=== PATIENT | female | born 1960 | race Caucasian/White ===

== ENCOUNTER 2025-10-26 15:09 | Outpatient (AMB) | payer OTHER, SELFPAY ==
[2025-10-26 15:24] VITALS: BMI 24.8
--- NOTE | 2025-10-26 15:24 | A.PHYSOV ---
Vital Signs 10/26/25 15:24 Height 5 ft 3 in Weight 140 lb BMI 24.8 Intake Visit Reasons: cervicogenic headaches Intake Note: Patient is a 65 year old female in office today for a follow up visit on cervicogenic headaches. Ink Grinder Required: No Allergies acetaminophen (From Percocet) Allergy (Unknown, Verified 10/26/25 15:24) Unknown adhesive tape Allergy (Unknown, Verified 10/26/25 15:24) Unknown amlodipine Allergy (Unknown, Verified 10/26/25 15:24) Unknown doxycycline Allergy (Unknown, Verified 10/26/25 15:24) Unknown Influenza Virus Vaccines Allergy (Unknown, Verified 10/26/25 15:24) Unknown oxycodone (From Percocet) Allergy (Unknown, Verified 10/26/25 15:24) Unknown prazosin Allergy (Unknown, Verified 10/26/25 15:24) Unknown prochlorperazine (From Compazine) Allergy (Unknown, Verified 10/26/25 15:24) Unknown propranolol Allergy (Unknown, Verified 10/26/25 15:24) Unknown sulfamethoxazole (From Bactrim) Allergy (Unknown, Verified 10/26/25 15:24) Unknown trimethoprim (From Bactrim) Allergy (Unknown, Verified 10/26/25 15:24) Unknown HPI Comments Details: History of Present Illness The patient is a 65 year old female presenting for follow-up of chronic left-sided neck pain. She reports that her left C2 and C3 levels began acting up significantly in May, which then improved, but symptoms have returned since the end of August or beginning of September. The primary complaint is severe headaches secondary to the neck pain. The patient describes the pain as being localized to the left side, and it tends to worsen by the end of the day. On some days, the pain requires her to lie down. She notes that sometimes a slight movement of her head will produce a loud crack, which provides temporary relief from the headache for about 20 minutes. Triggers include looking down at her phone. A past episode where her neck got stuck after lifting a pot caused her to vomit. Past interventions that have provided relief include joint injections and prednisone. She has been doing physical therapy exercises and has a cervical traction unit at home, but has not used it recently. She has not previously tried turmeric for her symptoms. Separately, the patient notes atrophy in her left hand, which she believes is related to Dupuytren's contracture. She reports associated numbness but denies any weakness. She has a history of trigger fingers, with one requiring two injections in the past year. Pain Description - Onset and Timing: A flare-up of chronic pain began in May, improved, and then worsened again since early September; pain is worse by the end of the day. - Quality and Character: Described as a pain that is severe enough to cause her to hold her head, can get stuck, and produces a loud cracking sound with certain movements. - Primary Location: Left C2 and C3. - Associated Symptoms: Causes severe headaches and has led to vomiting on one occasion. - Exacerbating Factors: Looking down at her phone; lifting objects. - Relieving Factors: Lying down; a specific neck movement resulting in a crack provides temporary relief of the headache; past treatments with injections and prednisone were helpful. - Interference with Function: The pain is significant enough that she is not living with too well anymore and sometimes has to lie down during the day. Results [facility] Medical History (Updated 10/26/25 @ 16:38 by Luis Bearden DO) Spondylosis of cervical region without myelopathy or radiculopathy Neck pain Cervicocranial syndrome Surgical History [place] teeth extracted History of jaw surgery History of salpingo-oophorectomy H/O: hysterectomy History of knee surgery H/O shoulder surgery History of cataract surgery Social History Household Members: Spouse Alcohol intake: current Alcohol intake frequency: a few times a week Patient Tobacco Use Status: Former Tobacco user Use of substances other than those prescribed or required for medical reasons: No Current occupational status: employed Review of Systems Narrative Review of Systems - Musculoskeletal: Reports chronic, flaring pain in the left cervical spine at the C2-3 level. - Neurological: Reports severe headaches associated with her neck pain. - Extremities: Reports atrophy and numbness in her left hand, which she relates to Dupuytren's contracture; denies weakness in the hand. - Gastrointestinal: Reports a single episode of vomiting when her neck became severely stuck. Physical Exam Exam Exam: Physical Exam - Neck: Pain is elicited on the left side with movement. - The right side is non-tender and has normal range of motion. - Extremities: Inspection of the left hand reveals atrophy and contractures consistent with Dupuytren's. Pain with posterior cervical facet loading. Neurological examination was. Patient signs. Spurling maneuver was negative. Sign was negative. Vital Signs: BMI result Body Mass Index 24.8 Assessment & Plan Assessment & Plan (1) Cervicocranial syndrome: Code(s): M53.0 - Cervicocranial syndrome Category: Medical (2) Neck pain: Code(s): M54.2 - Cervicalgia Category: Medical (3) Spondylosis of cervical region without myelopathy or radiculopathy: Code(s): M47.812 - Spondylosis without myelopathy or radiculopathy, cervical region Category: Medical Plan Pain Management - Analgesia: The patient reports that previous treatments with prednisone and joint injections have been effective. - Current Pain: Current pain is poorly controlled - Activities of Daily Living: Pain impacts her daily life to the point where she sometimes has to lie down. - Adverse Effects: She experienced one episode of vomiting when her neck became stuck. Plan Patient was informed and verbally consented to the use of an ambient scribe for clinic note documentation during this visit. 1. Cervicalgia And Cervicogenic Headache The patient's current flare of left-sided neck pain and associated headaches will be managed conservatively initially, given her past positive response to steroids. A prescription for an 18-day prednisone taper will be sent to her pharmacy. It was also recommended that she start taking turmeric 2000 mg daily with black pepper for its anti-inflammatory benefits. If the prednisone taper does not provide adequate relief, the plan is to proceed with left C2-C3 and C3-C4 facet injections. The patient was instructed to call the office to schedule the procedure if her symptoms do not improve. 2. Dupuytren's Contracture, Left Hand The patient reported concerns about progressive atrophy and numbness in her left hand, which she attributes to her known Dupuytren's contracture. She denies any associated motor weakness. These findings were acknowledged and noted for monitoring purposes. No new interventions were planned for this issue at this visit. Discussion Notes I discussed with the patient that given her current flare of neck pain and headaches, and her history of a positive response to steroids, we would start with a course of oral prednisone. I advised that I would send an 18-day taper prescription to her pharmacy. I also recommended she begin taking turmeric 2000 mg daily with black pepper as an anti-inflammatory supplement. We agreed that if this treatment does not resolve her symptoms, she should contact the office to schedule left C2-3 and C3-4 facet injections as the next step in her treatment plan. We also acknowledged her concerns regarding the atrophy in her left hand secondary to Dupuytren's contracture, which will be monitored. Patient Instructions - Begin taking the prednisone taper as prescribed. - Start taking turmeric 2000 mg per day. - You should purchase a brand that includes black pepper, as this helps with absorption. - If the prednisone does not relieve your neck pain and headaches, please call our office. - The next step, if needed, will be to schedule injections for your neck (left C2-3 and C3-4 facets). Medications: New prednisone Takes 6 tablets oral for 3 days, then 5 tablets oral for 3 days, then 4 tablets oral for 3 days, then 3 tablets oral for 3 days, then 2 tablets oral for 3 days, then 1 tablet per oral for 3 days 10 mg PO DIRECTED 63 tabs 0RF Neck Pain M47.812 - Spondylosis without myelopathy or radiculopathy, cervical region, M53.0 - Cervicocranial syndrome, M54.16 - Radiculopathy, lumbar region, M54.2 - Cervicalgia, M54.9 - Dorsalgia, unspecified Coding Level of Care Code Est Pt Level 4 (55168) Add On Problem Visit Only Diagnoses Cervicocranial syndrome M53.0 Neck pain M54.2 Spondylosis of cervical region without myelopathy or radiculopathy M47.812
--- OUTSIDE RECORDS SUMMARY | 2025-10-26 21:44 | XMS_ITS | Patient Health Record ---
Author Organization [facility] Address [address] [place] [address] Care Team Providers Care Negative Checker Name Role Phone Lolita Urias Primary Care Provider LOLITA Tinsley Unavailable [phone] Allergies Allergen (clinical drug ingredient) Drug/Non Drug Allergy documented on EMR Reaction Allergy Type Onset Date Status Vaccine product containing Influenza virus antigen (medicinal product) influenza virus vaccine (uncoded) Unknown Allergy Active sulfamethoxazole / trimethoprim Bactrim Unknown Drug Allergy Active acetaminophen / oxycodone Percocet Unknown Drug Allergy Active Compazine Unknown Drug Allergy Active Adhesive Unknown Allergy Active amlodipine Amlodipine Unknown Drug Allergy Activ e doxycycline Doxycycline Unknown Drug Allergy Act eda propranolol Propranolol Unknown Drug Allergy Act eda Reason For Referral No Information Medications Medication SIG (Take, Route, Frequency, Duration) Notes Start Date End Date Status Imodium A-D 2 MG 1 tablet as needed Orally Four times a day Not-Taking diazePAM 5 MG 1 tablet as needed Orally Once a day Not-Taking DDAVP Not-Taking Desmopressin Acetate Gay nasal spray at bedtime Active Clindamycin HCl PRN Acti ve Claritin 10 MG 1 tablet Orally Once a day PRN Active Atorvastatin Calcium 10 MG 1 tablet Orally Once a day Active Lisinopril 10 MG 1 tablet Orally Once a day Active Lexapro 5 MG 1 tablet Orally Once a day Active Furosemide 20 MG 1 tablet Orally Once a day PRN Not-Taking Erythromycin PRN Active Tylenol Extra Strength 500 MG 1 tablet as needed Orally every 6 hrs PRN Active Omeprazole 20 MG 1 capsule 30 minutes before morning meal Orally Once a day PRN Not-Taking Meclizine HCl 25 MG 1 tablet as needed Orally every 12 hrs PRN Active Loperamide HCl 2 MG 1 capsule as needed Orally Four times a day Active Valtrex 500 MG 1 tablet Orally Once a day Active Valium PRN Active Problems Problem Type SNOMED Code ICD Code Onset Dates Problem Status W/U Status Risk Notes Problem Acquired hallux valgus (75799175) Hallux valgus (acquired), right foot (M20.11) Active confirmed Problem Localized, primary osteoarthritis of the ankle and/or foot (233200194) Arthritis, midfoot (M19.079) Active confirmed Problem Right metatarsus adductus (disorder) (50181452118738972 ) 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) Active confirmed Problem Acquired supination of right foot (M21.6X1) Active confirmed Problem Acquired supination of left foot (M21.6X2) Active confirmed Encounters Encounter Location Date Provider Diagnosis [facility] [address] [place] [address] 07/30/2025 LOLITA ARTIS Plan Of Treatment Pending Test Test Name Order Date X ray : Foot, left 3v 04/16/2023 X ray : Foot, left 3v 01/03/2024 X ray : Foot, right 3v 04/16/2023 X ray : Foot, right 3v 01/03/2024 Insurance Providers Payer Name Payer Address Payer Phone Subscriber Number Group Number Insured Name Patient Relationship to Insured Coverage Start Date Coverage End Date [facility] [address] [place] [id number] Beckie Pinto Self - patient is the insured Medical (General) History Medical History History ICD Code BPPV (benign paroxysmal positional verti go) cervical disc disease chronic blepharitis DDD (degenerative disc disease) lumbar diabetes insipidus displacement of cervical intervertebral disc DJD of both shoulders environmental allergies generalized anxiety disorder herpes virus infection hyperlipidemia hypertension IBS (irritable bowel syndrome) labral tear of shoulder lower extremity edema major 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
--- OUTSIDE RECORDS SUMMARY | 2025-10-26 21:44 | XMS_ITS | Data Portability ---
Author Organization [facility] Jono Day [facility] Address [address] [place] [address] Assessment Encounter Date Assessment Date Assessment LastModified by Organization Details LastModified Time 07/16/2024 07/16/2024 Assessment: Bilateral ring trigger finger, left trigger thumb, bilateral hand early Dupuytren's initial evaluation Plan: Bilateral ring trigger finger and left thumb cortisone injections were performed today. She understands that a second injection could be performed if symptoms are recurrent but if recurrent after 2 injections, recommended treatment plan surgical release. She does not have contractures affecting her use of the hands, Dupuytren's or the treated with observation at this stage. She has a strong family history of Dupuytren's disease in bilateral parents. shai Not available 07/16/2024 10:16:04 05/27/2025 05/27/2025 Assessment: Bilateral ring trigger finger, left trigger thumb, bilateral hand early Dupuytren's recurrent after first injections 07/2024 Plan: Bilateral ring trigger finger and left thumb cortisone injections were performed today. She understands that if symptoms are recurrent 2 injections, recommended treatment plan surgical release. She does not have contractures affecting her use of the hands, Dupuytren's or the treated with observation at this stage. She has a strong family history of Dupuytren's disease in bilateral parents. Booking sheet is completed for trigger finger release surgery right ring finger for left ring finger and thumb. She will call and can be placed directly on the surgical schedule if symptoms do return. Questions asked and answered to her satisfaction regarding what is involved with surgery and anticipated recovery if needed. We have discussed the postoperative recovery course for the recommended surgery. Risks of surgery include but are not limited to: Infection, bleeding, damage normal tissues, need for future surgeries, and recurrent or recalcitrant symptoms after surgery. Questions asked and answered to the patient's satisfaction; surgery to be scheduled with my pathology secretary/transcriptionist. [email or web address] Not available 05/27/2025 14:56:41 Plan of Treatment Reminders Order Date Submit Date Provider Last Modified By Organization Details Last Modified Time Details Appointments None recorded. Lab None recorded. Referral None recorded. Procedures None recorded. Surgeries tenosynovec lucian (SURG) 2024 025 [email or web address] Not available 15:51:54 tenosynovec lucian (SURG) 2024 025 [email or web address] Not available 15:51:54 Imaging None recorded. Medication Orders None recorded. Patient TargetsNo targets recorded. Patient InstructionsNo instructions recorded. Reason for Referral None Reported. Results Created Date Observation Date Name Description Value Unit Range Abnormal Flag Note LastModifiedBy Organization Detail LastModifiedTime 07/11/2009/08/2021 imagi ng/di agnos tic resul t No observ ation record ed. [email or web address] Not Available 06/14 19:42:21 07/11/20 24 02/18/2021 imagi ng/di agnos tic resul t No observ ation record ed. [email or web address] Not Available 06/14 19:42:34 07/11/20 24 12/02/2021 imagi ng/di agnos tic resul t No observ ation record ed. [email or web address] Not Available 06/14 19:42:56 Result Notes None recorded. Problems Name Problem SNOMED Code Status Onset Date Resolution Date Notes Provider Name and Address Organization Details Recorded Time No complaint s 305701103 Active Status: 'I'; Not Available [facility] 4 09:12:13 Chondroma lacia of left patella 377904085216 106 Active 2016 Problem Code: M22.42; Problem Code Type: ICD-10; Status: 'A'; Not Available [facility] 4 10:57:41 Problem Notes None recorded. Procedures Surgical History Date Name Laterality Status Provider Name and Address Organization Details Recorded Time 5 JZMulti Trigger Finger Injection completed Shandra Atwood MD [address], [place], [address], [facility] 05/27/2025 14:55:13 4 Trigger Finger Kenalog Injection completed Shandra Atwood MD [address], [place], [address], [facility] 07/16/2024 10:15:02 Imaging Results None recorded. Procedure Notes None recorded. Medical Equipment None Reported. Allergies Allergen ID Allergen Name Allergen Category Reaction Reaction Severity Criticality Documentation Date Start Date Code Code System Note Provider Name and Address Organization Details Recorded Time 908447 Product containin g beta adrenergi c receptor antagonis t (product) medicatio n Not available Not available Not available 07/16/2024 19147 009 [facility] 4 09:54:23 96803 amlodipin e besylate medicatio n Not available Not available Not available 01/14/20242018 49280 6 RxNorm Not Available [facility] 4 11:24:22 61950 doxycycli ne hyclate medicatio n Not available Not available Not available 01/14/20242018 03084 RxNorm Not Available [facility] 4 11:24:22 70362 tetracycl ine hydrochlo ride medicatio n Not available Not available Not available 01/14/20242018 75008 6 RxNorm Not Available [facility] 4 11:24:22 63390 oxycodone hydrochlo ride medicatio n Not available Not available Not available 01/14/20242021 06854 RxNorm Not Available [facility] 4 11:24:22 44641 Bactrim medicatio n Not available Not available Not available 01/14/20242021 92483 9 RxNorm Not Available [facility] 4 11:24:22 Medications Name Sig Start Date Stop Date Status Note LastModified by Organization Details LastModified Time ivermectin 3 mg tablet TAKE 4 TABLETS BY MOUTH 1 TIME WEEKLY FOR 3 WEEKS active Not Available Not Available No t Available loperamide 2 mg capsule active Not Available Not Available Not Available atorvastati n 10 mg tablet active Not Available Not Available Not Available prazosin 1 mg capsule active Not Available Not Available N ot Available ondansetron HCl 4 mg tablet active Not Available Not Available Not Available desmopressi n 10 mcg/spray (0.1 mL) nasal spray (non-refrig erated) active Not Available Not Available Not Available valacyclovi r 500 mg tablet active Not Available Not Available Not Available minoxidil 2.5 mg tablet TAKE ONE-HALF TABLET BY MOUTH DAILY active Not Available Not Available No t Available clindamycin 1 % topical gel active Not Available Not Available Not Available meclizine 25 mg tablet active Not Available Not Available Not Available lisinopril 5 mg tablet active Not Available Not Available Not Available diazepam 5 mg tablet active Not Available Not Available No t Available escitalopra m 5 mg tablet active Not Available Not Available Not Available Valtrex Valtrex 500MG Tablet 03/10 completed Statu s: 'Disc ontin ued'; Not Available Not Available Not Available oxycodone HCl-oxycodo ne-ASA as directed 1 TABLET Q 4 HOURS PRN PAIN DO NOT DRIVE WHILE TAKING THIS MEDICATIO N 2021 active Statu s: 'Curr ent'; Not Available Not Available Not Available Yuvafem 10 mcg vaginal tablet active Not Available Not Available Not Available Wegovy 0.25 mg/0.5 mL subcutaneou s pen injector active Not Available Not Available Not Available Wegovy 0.5 mg/0.5 mL subcutaneou s pen injector active Not Available Not Available Not Available Vitals Date Recorded Body height Body mass index (BMI) Body weight Provider Name and Address Organization Details Last Updated DateTime 05/27/2025 160.02 cm 29.2 kg/m2 34177.74 g EBONY So [facility] 05/27/2025 14:11:43 Date Recorded Body height Body mass index (BMI) Body weight Provider Name and Address Organization Details Last Updated DateTime 07/16/2024 160.02 cm 11.5 kg/m2 94708.5 g LARISSA TRACEYLIAM [place] - [facility] 07/16/2024 09:53:57 Social History None recorded. Functional Status None recorded. Mental Status None recorded. Family History Nothing Reported. Medical History No medical history recorded. Gynecological HistoryNo gynecological history recorded. Obstetrics History GPAL:G 0 P 0 0 0 0 Past Encounters Encounter ID Performer Location Encounter Start Date Encounter Closed Date Diagnosis/Indication Diagnosis SNOMED-CT Code Diagnosis ICD10 Code Diagnosis IMO Codes Diagnosis Note [id number] MD Andie Walsh [address] [place] [address] 07/16/2024 09:34:00 08/05/2024 09:08:16 Dupuytren's disease of palm 048842703 M72.0 Trigger fi nger of right hand 9096299633 7164720 M65.30 Trigger fi nger of left hand 8476244300 7936231 M65.30 [id number] Shandra padron MD [facility] [address], [place] [address] 05/27/2025 13:56:10 06/05/2025 07:33:15 Dupuytren's disease of palm 611045200 M72.0 Trigger fi nger of right hand 3071630956 4104323 M65.30 Triggering of digit 2399 25826 M65.850 9676196 Trigger th umb of left hand 9560366641 71992 M65.312 M65.342 [id number] Health Concerns Section Related Observation LastModified by Organization Detai ls LastModified Time None Recorded Concern Status LastModified by Organization Details LastModified Time None Recorded Advance Directives Directive None Recorded Payers Insurance Date Sequence Insurance Name Policy Number Policy [place] Covered Member ID Herm[place] Member ID Guarantor Name 06/06/2025 1 [employer] [facility] - [employer] - FAMILY HEALTH PLAN (POS) [id number] Yair Toussaint [id number] Beckie Pinto Notes Date Note Type Note Provider Name and Address Organization Details Recorded Time 07/16/2024 text/html ROS as noted in the HPI 63 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, retired PA, (outpatient internal med/peds, ortho) seen for initial eval of bilat ring trigger finger, and left trigger thumb, also has bilat Mike (+FHx bilat parents) Shandra Atwood MD [address], [place], [address], [facility] 07/16/2024 10:16:50 05/27/2025 text/html ROS as noted in the HPI 63 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 Shandra Atwood MD [address], [place], [address], [facility] 05/27/2025 14:58:04 OBGyn Episode No OBEpisode recorded.
--- OUTSIDE RECORDS SUMMARY | 2025-10-26 21:44 | XMS_ITS | Clinical Summary ---
Author Organization [facility] Address [address] [employer] [address] [address] Phone Care Team Providers Care Mold Repairer Name Role Phone Lolita Urias MD Primary Care Provid er Allergies Active Allergy Reactions Criticality Noted Date Comments Amlodipine Other (See Comments),Swelling 06/14/2017 Codeine Nausea And Vomiting High 11/01/2006 Doxycycline Nausea And Vomiting,Other (See Comments) High 11/01/2006 Flu Virus Vaccine Tv 2014- (18 Yr And Up),Recomb 12/22/2005 Fluorouracil-Adhesive Bandage 06/02/2022 Hydrocodone Nausea And Vomiting High 11/01/2006 Oxycodone Nausea And Vomiting High 11/01/2006 Oxycodone-Acetaminophen 06/02/2022 Propranolol Swelling 05/20/2018 Fatigue, swelling/edema Fatigue, swelling/edema Social History Tobacco Use Types Packs/Day Years Used Date Smoking Tobacco: Never Assessed Education Answer Date Recorded Are you interested in more education? Not on jaylan e 03/10/2023 Are you concerned about learning? Not on file 03/10/2023 No 03/10/2023 No 03/10/2023 Digital Access Answer Date Recorded No 04/08/2023 No 04/08/2023 No 04/08/2023 Reliable internet access at home? Not on file 04/08/2023 Device with a working camera? Not on file Comments Unknown Sex and Gender Information Value Date Recorded Sex Assigned at Not on file Legal Sex Female 5:45 PM EST Gender Identity Not on file Sexual Orientation Not on file Last Filed Vital Signs Vital Sign Reading Time Taken Comments Blood Pressure 152/88 06/02/2022 2:45 PM EDT Pulse 67 06/02/2022 2:45 PM EDT Temperature 36.8 C (98.2 F) 06/02/2022 2:45 PM EDT Respiratory Rate 15 06/02/2022 2:45 PM EDT Oxygen Saturation 98% 06/02/2022 2:45 PM EDT Inhaled Oxygen Concentration - - Weight 72.6 kg (160 lb) 06/02/2022 11:27 AM EDT Height 160 cm (5' 3 ) 06/02/2022 11:27 AM EDT Body Mass Index 28.34 06/02/2022 11:27 AM EDT Plan of Treatment Health Maintenance Due Date Last Done Comments LIPID PANEL 1958 DEPRESSION SCREENING 1970 SMOKING Hx and SMOKELESS TOBACCO SCREENING 1971 HEPATITIS C SCREENING 1976 COLOGUARD 2003 COLONOSCOPY 2003 COLORECTAL CANCER SCREENING 2003 FIT TEST 2003 FOBT 2003 SIGMOIDOSCOPY 2003 VIRTUAL COLONOSCOPY 2003 PNEUMOCOCCAL VACCINES (50+ years) (1 of 1 - PCV) 2008 ZOSTER VACCINES (1 of 2) 2008 OSTEOPOROSIS SCREENING INITI AL (ONE-TIME) 2023 MAMMOGRAM 04/06/2024 04/06/2022, 11/06/2018 INFLUENZA VACCINE (#1) 2025 COVID-19 VACCINE (2 - 2024-2 6 season) 2025 05/25/2022 Adult Td,Tdap Booster 03/13/2027 03/13/2017 , 03/06/2017, 01/09/2007 RSV VACCINE (1 - 1-dose 75+ series) 2033 HEPATITIS A VACCINES Aged Out No long er eligible based on patient's age to complete this topic HIB VACCINES Aged Out No longer eligi ble based on patient's age to complete this topic MENINGOCOCCAL VACCINES (ACWY) Aged Out No longer eligible based on patient's age to complete this topic MENINGOCOCCAL VACCINES (B) Aged Out N o longer eligible based on patient's age to complete this topic Medical Devices Not on file Insurance [facility] [employer] [facility] FAMILY [employer] PLAN [facility] [place] [address] HEALTH PLAN FAMILY HEALTH PLAN [facility] FAMILY HEALTH PLAN Care Teams Mold Repairer Relationship Specialty Start Date End Date [facility] [address] [id number] PCP - General Internal Medicine 09/11/18 Additional Source Comments The information contained in this document represents components of the legal health record. It is not the complete legal health record.[facility]
--- OUTSIDE RECORDS SUMMARY | 2025-10-26 21:44 | XMS_ITS | Encounter Summary ---
Author Organization [facility] Address [address] [address] Phone Care Team Providers Care Unpaid Intern Name Role Phone Lolita Urias MD Primary Care Provid er Reason for Referral * Physical Therapy (Routine) - Closed Specialty Diagnoses / Procedures Referred By Contmatt castellanos Referred To Contact Physical Therapy Diagnoses Encounter for rehabilitation System, Provider Not In, PhD [id number] [place] [id number] Phone: tel: Referral ID Status Reason Start Date Expiration Date Visits Re quested Visits Authorized [id number] Closed 09/17/2018 11/11/2018 15 15 Encounter Details Date Type Department Care Team (Latest Contact Info) Description 09/12/2018 Transcribe Orders [facility] [address] [place] [id number] [facility] [address] [phone] Encounter for rehabilitation (Primary Dx) Social History Tobacco Use Types Packs/Day Years Used Date Smoking Tobacco: Never Assessed Comments Unknown Sex and Gender Information Value Date Recorded Sex Assigned at Not on file Legal Sex Female 5:45 PM EST Gender Identity Not on file Sexual Orientation Not on file documented as of this encounter Plan of Treatment Scheduled Referrals Name Type Priority Associated Diagnoses Orde r Schedule Ambulatory referral to [facility] Physical Therapy Outpatient Referral Routine Encounter for rehabilitation Ordered: 09/12/2018 documented as of this encounter Visit Diagnoses Diagnosis Encounter for rehabilitation- Primary documented in this encounter Care Teams Unpaid Intern Relationship Specialty Start Date End Date Lolita Urias MD [address] [address] PCP - General Internal Medicine 09/11/18 documented as of this encounter Additional Source Comments The information contained in this document represents components of the legal health record. It is not the complete legal health record.[facility]
--- OUTSIDE RECORDS SUMMARY | 2025-10-26 21:44 | XMS_ITS | Encounter Summary ---
Author Organization [facility] Address [address] [facility] [address] [place] [phone] Phone Care Team Providers Care Machine Tool Electrician Name Role Phone Lolita Urias MD Primary Care Provid er Encounter Details Date Type Department Care Team (Late st Contact Info) Description 05/27/2021 Transcribe Orders [facility] [place] [address] Whitley Garcia MD [address] [place] [address] Social History Tobacco Use Types Packs/Day Years Used Date Smoking Tobacco: Never Assessed Comments Unknown Sex and Gender Information Value Date Recorded Sex Assigned at Not on file Legal Sex Female 5:45 PM EST Gender Identity Not on file Sexual Orientation Not on file documented as of this encounter Plan of Treatment Not on file documented as of this encounter Visit Diagnoses Not on filedocumented in this encounter Care Teams Machine Tool Electrician Relationship Specialty Start Date End Date Lolita Urias MD [address] [address] PCP - General Internal Medicine 09/11/18 documented as of this encounter Additional Source Comments The information contained in this document represents components of the legal health record. It is not the complete legal health record.[facility]
== END 2025-10-26 16:16 | disposition home or self-care (01) ==
LOC: HO.HPHYS 15:10
PROVIDERS: PCP Pediatrics; Visit Provider Physical Medicine & Rehabilitation
DX: M53.0 Cervicocranial syndrome (principal); M54.2 Cervicalgia; M47.812 Spondylosis without myelopathy or radiculopathy, cervical region
CPT/HCPCS: 99214

== ENCOUNTER → 2025-10-26 15:09 | Outpatient (BNVA) | payer OTHER, SELFPAY | PROVIDERS: PCP Pediatrics; Visit Provider Physical Medicine & Rehabilitation | DX: M47.812 Spondylosis without myelopathy or radiculopathy, cervical region (principal); M53.0 Cervicocranial syndrome; M54.16 Radiculopathy, lumbar region; M72.0 Palmar fascial fibromatosis [Dupuytren]; R20.0 Anesthesia of skin; G44.86 Cervicogenic headache | CPT/HCPCS: 99212 ==